=== PATIENT | male | born 1975 | race Caucasian/White ===

== ENCOUNTER 2018-03-09 07:59 | Emergency (ER) | payer BC ==
[2018-03-09 08:11] VITALS: BP 153/102
--- NOTE | 2018-03-09 08:17 | UC ---
General HPI - HPI Summary HPI Summary: Pleasant 42 yo gentleman c/o last couple weeks of sinus congestion, bilat ear pain, sore throat. Mild cough, min productive. No GI issues, no rash. Denies wheezing. Has been taking cold medications, but to minimal avail. Flew to / from [place] last week, returning on Thursday (today is Thursday), ears hurt tremendously during flight(s). No recent high fever. - History of Current Complaint Stated Complaint: RESP ISSUE EAR CLOGGED SORE THROAT Time Seen by Provider: 03/09/18 08:10 Hx Obtained From: Patient - Allergy/Home Medications Allergies/Adverse Reactions: Allergies Allergy/AdvReac Type Severity Reaction Status Date / Time Penicillins Allergy Rash Verified 03/09/18 08:11 dairy products Allergy GI Upset Uncoded 03/09/18 08:11 Home Medications: Home Medications Allopurinol 300 mg PO DAILY 03/09/18 [History Confirmed 03/09/18] Carvedilol [Coreg] 25 mg PO BID 03/09/18 [History Confirmed 03/09/18] Cpm/PE/Dm/Acetaminophen/Guaifn [Tylenol Cold-Flu Day-Nt Caplet] 1 each PO ONCE PRN 03/09/18 [History Confirmed 03/09/18] Losartan TAB* [Cozaar TAB*] 1 tab PO DAILY 03/09/18 [History Confirmed 03/09/18] PMH/Surg Hx/FS Hx/Imm Hx Previously Healthy: Yes Cardiovascular History: Hypertension - Family History Known Family History: Positive: Hypertension - Social History Occupation: Employed Full-time Review of Systems All Other Systems Reviewed And Are Negative: Yes Constitutional: Positive: Other - see hpi Skin: Positive: Negative Eyes: Positive: Other - watery eyes ENT: Positive: Sore Throat, Ear Ache, Nasal Discharge, Sinus Congestion Respiratory: Positive: Cough Cardiovascular: Positive: Negative Gastrointestinal: Positive: Negative Genitourinary: Positive: Negative Motor: Positive: Negative Neurovascular: Positive: Negative Musculoskeletal: Positive: Negative Neurological: Positive: Negative Psychological: Positive: Negative Is Patient Immunocompromised?: No Physical Exam Triage Information Reviewed: Yes Appearance: Well-Nourished - sitting up. Looks tired but NAD / nontoxic. Vital Signs Reviewed: Yes Eye Exam: Other - normal except a little red / watery. ENT Exam: Other - R eac - + cerumen impaction L eac - clear. L TM red, not bulging. + dull. intact as visible. Neck exam: Normal Neck: Positive: Supple, Nontender, No Lymphadenopathy Respiratory Exam: Normal Respiratory: Positive: Chest non-tender, Lungs clear, Normal breath sounds, No respiratory distress, No accessory muscle use Cardiovascular Exam: Normal Cardiovascular: Positive: RRR, No Murmur, Pulses Normal, Brisk Capillary Refill Abdominal Exam: Normal Abdomen Description: Positive: Nontender Musculoskeletal Exam: Normal Neurological Exam: Normal Psychological Exam: Normal Skin Exam: Normal Course/Dx - Course Course Of Treatment: Post cerumen irrigation, R eac clear. R TM + mild redness c/w barotrauma, but not infected as in L TM. Reviewed strep test results. Reviewed coa / tx plan. Questions as posed answered to the best of my ability. - Diagnoses Provider Diagnosis: Left otitis media, Barotrauma, Sinusitis, High blood pressure Discharge - Sign-Out/Discharge Documenting (check all that apply): Patient Departure All imaging exams completed and their final reports reviewed: No Studies - Discharge Plan Condition: Stable Disposition: HOME Prescriptions: Levofloxacin TAB* [Levaquin 500 Tab*] 500 mg PO DAILY #10 tab Patient Education Materials: Sinusitis (ED), Cerumen Impaction (ED), Barotitis Media (ED), Ear Infection (ED), Chronic Hypertension (ED) Forms: *Work Release Referrals: Chemo Dyer MD [Primary Care Provider] - Additional Instructions: Follow up with your primary care physician, if possible in the next couple weeks for blood pressure recheck. Avoid "Decongestant" in cold medication (will increase your blood pressure). Drink plenty of water. Minimize caffeine. Seek medical attention for worse or new problems. Negative strep throat test today. In addition to bilateral barotrauma, you have a Left ear infection. - Billing Disposition and Condition Condition: STABLE Disposition: Home
== END 2018-03-09 08:50 | disposition home or self-care (01) ==
LOC: UCEAST 07:59
DX: H66.92 Otitis media, unspecified, left ear (principal); T70.0XXA Otitic barotrauma, initial encounter; W94.0XXA Exposure to prolonged high air pressure, initial encounter; H61.21 Impacted cerumen, right ear; J32.9 Chronic sinusitis, unspecified; R03.0 Elevated blood-pressure reading, without diagnosis of hypertension; Z88.0 Allergy status to penicillin
CPT/HCPCS: 87651; 99212; G0463